=== PATIENT | female | born 1970 | race Caucasian/White ===

== ENCOUNTER → 2017-04-16 | Outpatient (CLI) | payer BC ==
--- NOTE | 2017-04-16 14:37 | DI ---
RIGHT BREAST ULTRASOUND, 04/16/2017 1:11 PM: Clinical History: Abnormal screening mammogram from 04/07/2017. A convexity pattern was noted in the d ense breast tissue of the right breast in the upper-outer quadrant. Scans are performed by the technologist and myself through all four quadrants of the right breast wit h the high resolution linear array probe. Color Doppler ultrasound was also performed. Scans reveal no solid or cystic mass. The breast is comprised almost exclusively of fibrous tissue wi th scattered areas of glandular and ductal tissue. Specifically, no lesion is seen in the upper-outer quadrant. Toward the axillary tail, the fibrous tissue has a convex appearance similar to the findin gs on the mammogram. In this area, there is no evidence of a solid or cystic lesion. Follow Up: As long as this patient remains clinically asymptomatic, she may reenter a routine breast surveillance protocol consisting of monthly self breast exams if she so desires, and mammograms every year. BIRADS Category: 1. Negative. In the area of convexity in the axillary tail, no lesion is seen. This tissue represents predominantly fibrous components of fibroglandular breast tissue. Assessment: Negative.
== END ==
LOC: MAMMO 13:07
PROVIDERS: ATTEND Nurse Practitioner Family
DX: R92.8 Other abnormal and inconclusive findings on diagnostic imaging of breast (principal)
CPT/HCPCS: 76641